=== PATIENT | male | born 1970 | race Two or more races ===

== ENCOUNTER 2021-01-26 07:17 | Outpatient (CLI) | payer OTHER ==
[~2021-01-26 07:17] MED LIST: FOSAMAX70 MG; TAPAZOLE10 MG
== END 2021-01-26 07:26 | disposition home or self-care (01) ==
LOC: LAB 07:17
DX: D64.89 Other specified anemias (principal); N39.0 Urinary tract infection, site not specified; E78.2 Mixed hyperlipidemia; E03.8 Other specified hypothyroidism; E11.65 Type 2 diabetes mellitus with hyperglycemia; E06.3 Autoimmune thyroiditis; I10 Essential (primary) hypertension

== ENCOUNTER 2022-02-03 08:53 | Outpatient (CLI) | payer OTHER | END 2022-02-03 08:54 | disposition home or self-care (01) | LOC: LAB 08:53 | PROVIDERS: ATTEND General Practice | DX: E03.8 Other specified hypothyroidism (principal); K21.9 Gastro-esophageal reflux disease without esophagitis; Z12.5 Encounter for screening for malignant neoplasm of prostate; Z12.11 Encounter for screening for malignant neoplasm of colon; E55.9 Vitamin D deficiency, unspecified; E61.2 Magnesium deficiency; I10 Essential (primary) hypertension; E78.2 Mixed hyperlipidemia ==

== ENCOUNTER 2022-02-04 08:34 | Outpatient (CLI) | payer OTHER | END 2022-02-04 08:35 | disposition home or self-care (01) | LOC: LAB 08:34 | PROVIDERS: ATTEND General Practice | DX: E03.8 Other specified hypothyroidism (principal); K21.9 Gastro-esophageal reflux disease without esophagitis; Z12.5 Encounter for screening for malignant neoplasm of prostate; Z12.11 Encounter for screening for malignant neoplasm of colon; E55.9 Vitamin D deficiency, unspecified; E61.2 Magnesium deficiency; I10 Essential (primary) hypertension; E78.2 Mixed hyperlipidemia ==

== ENCOUNTER 2022-07-03 08:09 | Outpatient (CLI) | payer OTHER | END 2022-07-03 08:26 | disposition home or self-care (01) | LOC: LAB 08:09 | DX: E78.2 Mixed hyperlipidemia (principal); I10 Essential (primary) hypertension; D64.9 Anemia, unspecified; N39.0 Urinary tract infection, site not specified; E03.8 Other specified hypothyroidism; E06.3 Autoimmune thyroiditis; E21.3 Hyperparathyroidism, unspecified ==

== ENCOUNTER 2022-08-05 11:48 | Outpatient (CLI) | payer OTHER | END 2022-08-05 11:51 | disposition home or self-care (01) | LOC: SONOGRAMA 11:48 | DX: E04.2 Nontoxic multinodular goiter (principal); R59.0 Localized enlarged lymph nodes ==

== ENCOUNTER 2022-08-06 13:40 | Outpatient (CLI) | payer OTHER | END 2022-08-06 13:45 | disposition home or self-care (01) | LOC: NUCLEAR 13:40 | PROVIDERS: ATTEND Internal Medicine Endocrinology, Diabetes & Metabolism | DX: M85.89 Other specified disorders of bone density and structure, multiple sites (principal); Z13.820 Encounter for screening for osteoporosis ==

== ENCOUNTER 2023-10-26 07:16 | Outpatient (CLI) | payer OTHER ==
[2023-10-26 08:15] LABS: HEMATOCRIT 49.1 % (39.0-48.0); HEMOGLOBIN 16.7 g/dL (13-16.00); MEAN CELL VOLUME 86.3 fL (80.0-100.00); MEAN CORPUSCULAR HEMOGLOBIN 29.3 pg (27.00-32.0); MEAN CORPUSCULAR HGB CONC 33.9 g/dl (32.0-36.0); PLATELET COUNT 331 K/uL (150-450)
[2023-10-27 09:08] LABS: ESTRADIOL SERUM 78.4 pg/mL (7.6-42.6); TESTOSTERONE,TOTAL > 1500.00 ng/dL (264-916)
== END 2023-10-26 07:20 | disposition home or self-care (01) ==
LOC: LAB 07:16
PROVIDERS: ATTEND Obstetrics & Gynecology
DX: N40.1 Benign prostatic hyperplasia with lower urinary tract symptoms (principal); R89.1 Abnormal level of hormones in specimens from other organs, systems and tissues; E29.0 Testicular hyperfunction; E03.8 Other specified hypothyroidism; D64.89 Other specified anemias; E55.9 Vitamin D deficiency, unspecified; E78.41 Elevated Lipoprotein(a); M81.6 Localized osteoporosis [Lequesne]

== ENCOUNTER 2023-12-31 07:31 | Outpatient (CLI) | payer OTHER ==
[2023-12-31 09:15] LABS: HEMATOCRIT 51.6 % (39.0-48.0); HEMOGLOBIN 17.2 g/dL (13-16.00); MEAN CELL VOLUME 86.1 fL (80.0-100.00); MEAN CORPUSCULAR HEMOGLOBIN 28.6 pg (27.00-32.0); MEAN CORPUSCULAR HGB CONC 33.3 g/dl (32.0-36.0); PLATELET COUNT 302 K/uL (150-450); RED CELL DISTRIBUTION WIDTH 13.6 % (11.5-14.5)
[2024-01-02 09:59] LABS: CORTISOL 21.27 ug/dl; T3 TOTAL 1.11 ng/ml (0.846-2.02)
== END 2023-12-31 07:41 | disposition home or self-care (01) ==
LOC: LAB 07:31
DX: E06.3 Autoimmune thyroiditis (principal); E29.1 Testicular hypofunction; D35.2 Benign neoplasm of pituitary gland; E27.49 Other adrenocortical insufficiency; D64.9 Anemia, unspecified; E78.00 Pure hypercholesterolemia, unspecified; E55.9 Vitamin D deficiency, unspecified; D51.9 Vitamin B12 deficiency anemia, unspecified

== ENCOUNTER → 2024-01-26 09:07 | Outpatient (CLI) | payer OTHER | END | disposition home or self-care (01) | LOC: LAB 09:07 | DX: Z20.822 Contact with and (suspected) exposure to COVID-19 (principal); J10.1 Influenza due to other identified influenza virus with other respiratory manifestations ==